=== PATIENT | female | born 1990 | race African-American/Black ===

== ENCOUNTER 2023-02-13 21:15 | Emergency (ER) | payer SELFPAY ==
[2023-02-13] MEDS ORDERED: Ketorolac Tromethamine 30 MG/ML VIAL ONE (21:43)
[2023-02-13 22:21] LABS: #Eosinphils 0.2 thou/uL (0.0-0.7); #Monocytes 0.4 thou/uL (0.11-0.59); #Neutrophils 2.5 thou/uL (1.40-6.50); %Basophils 0.7 % (0.0-1.0); %Eosinophils 2.8 % (0.0-10.0); %Lymphocytes 42.5 % (21.0-51.0); %Monocytes 7.1 % (0.0-10.0); %Neutrophils 46.9 % (42.0-75.0); Hematocrit 34.6 % (36.0-47.0); Hemoglobin 11.8 g/dL (12.0-16.0); Mean Corpuscular HGB CONC 34.1 g/dL (32.0-36.0); Mean Corpuscular Hemoglobin 30.9 pg (27.0-31.0); Mean Corpuscular Volume 90.6 fl (78.0-98.0); Mean Platelet Volume 11.4 fL (7.4-10.4); Platelet Count 203 10x3/uL (130-400); RBC Distribution Width 12.5 % (11.5-14.5); Red Blood Cell (RBC) Count 3.82 mill/uL (4.20-5.40); White Blood Cell (WBC) Count 5.4 10x3/uL (4.8-10.8)
[2023-02-13 22:44] LABS: ALT (SGPT) 13 U/L (8-55); AST (SGOT) 23 U/L (5-34); Albumin 4.1 g/dL (3.5-5.0); Alkaline Phosphatase 68 U/L (40-110); Anion Gap 14 mmol/L (10-20); BUN (Urea Nitrogen) 9 mg/dL (7.0-18.7); Bilirubin, Total 0.2 mg/dL (0.2-1.2); Calc. Creatinine Clearance 0 mL/min (70-130); Calcium 8.9 mg/dL (7.8-10.44); Carbon Dioxide 21 mmol/L (22-29); Chloride 108 mmol/L (98-107); Estimated GFR 108; Glucose 127 mg/dL (70-105); Protein, Total 7.1 g/dL (6.0-8.3); Sodium 139 mmol/L (136-145)
[2023-02-13 22:46] LABS: Troponin I Less than 0.010 ng/mL (< 0.028)
== END 2023-02-13 22:57 | disposition home or self-care (01) ==
LOC: ERS 21:15
DX: M94.0 Chondrocostal junction syndrome [Tietze] (principal)
CPT/HCPCS: 36415; 71045; 80053; 83880; 85025; 93005; 96372; J1885

== ENCOUNTER 2023-03-10 12:19 | Emergency (ER) | payer SELFPAY ==
[2023-03-10 14:04] LABS: SARS-CoV-2 NAA Rapid Test Not Detected (NotDetected)
== END 2023-03-10 14:34 | disposition home or self-care (01) ==
LOC: ERS 12:19
DX: Z20.822 Contact with and (suspected) exposure to COVID-19 (principal)
CPT/HCPCS: 99283; U0002